=== PATIENT | male | born 1975 | race African-American/Black ===

== ENCOUNTER 2017-12-17 19:36 | Emergency (ER) | payer OTHER ==
[~2017-12-17] VITALS: Ht 172.7 cm; Wt 90.0 kg
[~2017-12-17 19:36] MED LIST: FLEXERIL10 MG PO; MOTRIN800 MG PO; NORCO 5/3251 TABLET PO; NORCO 7.5/321 TABLET PO
[2017-12-17 19:54] LABS: HEMATOCRIT 23.9 % (38.0-50.0); HEMOGLOBIN 7.7 G/DL (12.5-16.6); MCH 23.7 PG (29.0-34.0); MCHC 32.2 G/DL (30.0-36.0); MCV 73.5 FL (86-99); PLATELET COUNT 551 K/uL (156-360); RBC DIS.WIDTH-CV 14.4 % (11.8-14.6); RBC DIS.WIDTH-SD 38.5 % (39-53); RED BLOOD COUNT 3.25 M/uL (4.00-5.50); WHITE BLOOD COUNT 8.2 K/uL (4.1-10.2)
[2017-12-17 20:05] LABS: ALBUMIN 3.3 g/dL (3.2-4.8)
[2017-12-17 20:06] LABS: CHLORIDE 103 mEq/L (99-109); POTASSIUM 4.6 mEq/L (3.7-5.4); SODIUM 134 mEq/L (136-147)
[2017-12-17 20:08] LABS: GLUCOSE 93 mg/dL (70-99); TOTAL PROTEIN 6.5 g/dL (6.4-8.3)
[2017-12-17 20:10] LABS: TOTAL BILIRUBIN 0.3 mg/dL (0.0-1.0)
[2017-12-17 20:11] LABS: ALKALINE PHOSPHATASE 133 IU/L (3-129); CREATININE 1.1 mg/dL (0.6-1.3); GFR ESTIMATE (CALCULATED) > 59 mL/min/ (58.99-99999)
[2017-12-17 20:13] LABS: AST (GOT) 25 IU/L (2-34); UREA NITROGEN (BUN) 18 mg/dL (9-23)
[2017-12-17 20:14] LABS: ALT (GPT) 22 IU/L (3-49)
[2017-12-17 20:15] LABS: LIPASE 13 U/L (1.0-51.0)
[2017-12-17 21:27] LABS: APPEARANCE CLEAR ((CLEAR)); BILIRUBIN NEGATIVE; BLOOD NEGATIVE; COLOR YELLOW ((YELLOW)); GLUCOSE (STRIP) NEGATIVE; KETONES 80; LEUKOCYTES TRACE; NITRITE NEGATIVE; PROTEIN (STRIP) 30; SPECIFIC GRAVITY 1.025 (1.000-1.030); UROBILINOGEN 0.2 MG/DL (0.2-1.0)
[2017-12-17 21:37] LABS: BACTERIA NONE SEEN /HPF; EPITHELIAL CELLS RARE /HPF; MUCUS 1+ /LPF; RED BLOOD CELLS 0-5 /HPF (0-5); UCUL ADDED? NO; WHITE BLOOD CELLS 0-5 /HPF (0-5)
[2017-12-18 00:35] VITALS: BP 112/72
== END 2017-12-18 00:44 | disposition short-term general hospital (02) ==
LOC: EME 19:36
DX: C16.9 Malignant neoplasm of stomach, unspecified (principal); D64.9 Anemia, unspecified; J45.909 Unspecified asthma, uncomplicated; Z87.891 Personal history of nicotine dependence
CPT/HCPCS: 74177; 80053; 81003; 83690; 85027; 99281; 99285; J2270; J2405